=== PATIENT | male | born 1965 | race Caucasian/White ===

== ENCOUNTER 2020-11-03 04:50 | Day surgery (SDC) | payer BC, SELFPAY ==
[2020-10-26 13:42] VITALS: BMI 33.5
--- NOTE | 2020-11-02 20:20 | PM.HPGS ---
History of Present Illness History of Present Illness Consent: Risks, benefits, and alternatives have been discussed and questions answered. Patient agrees to proceed with procedure. Chief complaint: hx of colon polyps Narrative: Smith Leonardo is a 55 year old male here today for screening colonooscopy. I removed a polyp 4+ years ago Review of Systems Review of Systems: All systems reviewed & are unremarkable except as noted in HPI and below PMFSH Past Medical History Medical History Achilles tendon contracture, left Arthritis Bursitis of shoulder, left Callus of foot Effusion, left knee Fibromyalgia GERD with apnea Hearing loss Lateral epicondylitis Left elbow pain Left foot pain Metatarsalgia of left foot Peripheral neuropathy Plantar fasciitis Plantar fasciitis Vision abnormalities Surgical History Surgical History History of arthroscopy of knee History of carpal tunnel release History of repair of left rotator cuff Status post left foot surgery Family History Family History Other Cerebrovascular accident Diabetes mellitus Family history of alcoholism Hypertension Social History Social History Smoking packs per day: 0.5 Smoking cigarettes per day: 10.0 Years smoked: 40 Smoking pack-years: 20.00 Smoking status: Current every day smoker Alcohol intake: current Drinks per week: 6 Alcohol use details: Occasional Substance use: unknown Living arrangements: with family Spiritual care concerns: No Meds Home Medications and Allergies Home Medications Medication Instructions Recorded Confirmed Type omeprazole 40 mg-sodium 1 cap PO DAILY 01/19/19 10/27/20 History bicarbonate 1.1 gram capsule ibuprofen 800 mg tablet 800 mg PO Q12H #30 tablet 07/27/19 10/27/20 Rx gabapentin 600 mg tablet 600 mg PO BID 09/26/20 10/27/20 History sodium,potassium,mag sulfates See Rx Instructions .ROUTE 10/05/20 10/27/20 Rx [Suprep Bowel Prep Kit] .COMPLEX #1 ml sildenafil 25 mg PO DAILY PRN 10/26/20 11/03/20 History Allergies Allergy/AdvReac Type Severity Reaction Status Date / Time bupropion Allergy Severe HIVES Verified 11/03/20 07:45 varenicline Allergy Unknown Unknown Verified 11/03/20 07:45 Exam Resp: Auscultation: clear to auscultation bilaterally Cardio: Rate: regular rate Rhythm: regular rhythm GI: GI Palp: Yes Soft to palpation and No Tenderness to palpation present (GI) Assessment and Plan Assessment and plan (1) Colon cancer screening: Code(s): Z12.11 - Encounter for screening for malignant neoplasm of colon Status: Acute Assessment and Plan: Colonoscopy with possible biopsy or polypectomy or cautery or injection of substances.
--- NOTE | 2020-11-03 07:33 | WPDANESEPPF ---
Anes - Initial Pre Proc Eval Procedure: Operation Date: 11/03/20 08:30 Proposed Procedures p Screening Colonoscopy - Amauri Del Valle MD Date/Time: 11/03/20 07:33 Surgeon: Amauri Del Valle MD Pre Op Diagnosis: hx of colon polyps Patient Data Age: 55 Gender: M Height: 1.8 m Weight: 109 kg Allergies Allergy/AdvReac Type Severity Reaction Status Date / Time bupropion Allergy Severe HIVES Verified 11/03/20 07:45 varenicline Allergy Unknown Unknown Verified 11/03/20 07:45 Home Medications Medication Instructions Recorded Confirmed Type omeprazole 40 mg-sodium 1 cap PO DAILY 01/19/19 10/27/20 History bicarbonate 1.1 gram capsule ibuprofen 800 mg tablet 800 mg PO Q12H #30 tablet 07/27/19 10/27/20 Rx gabapentin 600 mg tablet 600 mg PO BID 09/26/20 10/27/20 History sodium,potassium,mag sulfates See Rx Instructions .ROUTE 10/05/20 10/27/20 Rx [Suprep Bowel Prep Kit] .COMPLEX #1 ml sildenafil 25 mg PO DAILY PRN 10/26/20 11/03/20 History Patient hx anesthesia problems: none Family hx anesthesia problems: none PMFSH Past Medical History Medical History (Updated 11/02/20 @ 20:22 by Amauri Del Valle MD) Achilles tendon contracture, left Arthritis Bursitis of shoulder, left Callus of foot Effusion, left knee Fibromyalgia GERD with apnea Hearing loss Lateral epicondylitis Left elbow pain Left foot pain Metatarsalgia of left foot Peripheral neuropathy Plantar fasciitis Plantar fasciitis Vision abnormalities Surgical History Surgical History (Updated 10/31/20 @ 09:03 by Nabila Wu, RT(R)) History of arthroscopy of knee History of carpal tunnel release History of repair of left rotator cuff Status post left foot surgery Family History Family History Other Cerebrovascular accident Diabetes mellitus Family history of alcoholism Hypertension Social History Social History Smoking packs per day: 0.5 Smoking cigarettes per day: 10.0 Years smoked: 40 Smoking pack-years: 20.00 Smoking status: Current every day smoker Alcohol intake: current Drinks per week: 6 Alcohol use details: Occasional Substance use: unknown Living arrangements: with family Spiritual care concerns: No Anes - Eval Final PreProcedure Day of Procedure 11/03/20 07:33 Patient weight: obese Heart: regular rate and rhythm Lungs: clear to auscultation and normal air movement Airway: Mallampati scale class II Neurological: alert and oriented Last oral intake: >/= 8 hours ASA classification: III Emergent: no Anesthetic plan: proceed Anesthesia type and monitoring: general GIVS Informed Consent: The patient's anesthetic plan and its attendant risks and benefits were discussed with the patient/family/POA. Questions were solicited and answers provided to the satisfaction of the patient/family/POA.
[2020-11-03 07:47] VITALS: BP 135/84; PULSE 82; RESP 16; TEMP 36.1; O2SAT 82; BMI 33.0
[2020-11-03] MEDS: LACTATED RINGERS 1,000 ML 150 ML IV CONT (07:59)
[2020-11-03 08:51] VITALS: BP 129/76; PULSE 83; RESP 17; O2SAT 100
[2020-11-03 09:01] VITALS: BP 136/92; PULSE 77; RESP 28; O2SAT 99
[2020-11-03 09:11] VITALS: BP 132/84; PULSE 68; RESP 19; O2SAT 99
== END 2020-11-03 09:23 | disposition home or self-care (01) ==
PROVIDERS: PCP Family Medicine; Visit Provider Internal Medicine Gastroenterology
PROC: 0DJD8ZZ Inspection of Lower Intestinal Tract, Via Natural or Artificial Opening Endoscopic (ICD-10-PCS; CPT 45378; principal; 2020-11-03 08:30)
DX: Z12.11 Encounter for screening for malignant neoplasm of colon (principal); K57.30 Diverticulosis of large intestine without perforation or abscess without bleeding; Z86.010 Personal history of colon polyps; K21.9 Gastro-esophageal reflux disease without esophagitis; M79.7 Fibromyalgia; G62.9 Polyneuropathy, unspecified; F17.210 Nicotine dependence, cigarettes, uncomplicated; E66.9 Obesity, unspecified; Z68.33 Body mass index [BMI] 33.0-33.9, adult
CPT/HCPCS: 45378; J2704; J7120

== ENCOUNTER 2021-06-07 07:38 | Outpatient (CLI) | payer BC, SELFPAY ==
--- NOTE | ~2021-06-07 | CT_ITS ---
EXAMINATION: CT abdomen pelvis wo/w con DATE: 06/07/2021 08:14 INDICATION: Microscopic hematuria TECHNIQUE: Computed tomography (CT) of the abdomen and pelvis was performed without intravenous contr ast. CT of the abdomen and pelvis was then performed with a total of 130 mL Omnipaque 350 intravenous contrast using a double-bolus technique for simultaneous opacification of the renal parenchyma and r enal collecting system. The dose-length product (DLP) was 2475.15 mGy-cm. Automated exposure control and iterative reconstruction technique were employed. COMPARISON: None FINDINGS: Minimal dependent atelectasis is present in the lung bases. The heart size is normal. The l iver, spleen, pancreas, gallbladder, and adrenal glands are normal. There is a 2.3 cm cyst of the rig ht kidney. No suspicious renal or urothelial lesion is identified. No stones are identified in the ki dneys, ureters, or bladder. There is no hydronephrosis or hydroureter. No pathologically enlarged abd ominal or pelvic lymph nodes are identified. Colonic diverticulosis is present without evidence of di verticulitis. The appendix is normal. There is a 10 mm cystic area posteriorly in the prostate or wanda inal vesicles. There is mild lumbar spondylosis. There is no free intraperitoneal gas or evidence of bowel obstruction. IMPRESSION: 1. No CT correlate for the patient's symptoms. Reviewed, dictated and finalized at location B.
== END 2021-06-07 07:39 | disposition home or self-care (01) ==
LOC: ANHIMG 07:41
PROVIDERS: PCP Family Medicine; Visit Provider Urology
DX: R31.29 Other microscopic hematuria (principal)
CPT/HCPCS: 74178; Q9967

== ENCOUNTER 2021-09-27 01:32 | Day surgery (SDC) | payer BC, SELFPAY ==
--- NOTE | 2021-08-30 16:12 | PM.IMHP ---
H&P: HPI History of Present Illness Date/Time: 08/30/21 16:12 Chief Complaint: Urinary frequency/urgency, nocturia and difficulty emptying Narrative: 56-year-old male with a several year history of progressive irritable and obstructive voiding symptoms. He reports both urinary frequency/ urgency with nocturia of 2 times per night in addition to a sense of hesitancy and incomplete emptying. Recent cystoscopy shows trilobar hyperplasia with a moderate-sized median all. There was no other identifiable lower urinary tract pathology on cystoscopy. He has had minimal response to a trial of tamsulosin can not tolerate finasteride because of side effects. After discussing therapeutic options including minimally invasive procedures for BPH such as UroLift and Rezum, he has elected for a TURP. He is aware the risk of this including, but not limited to, adverse cardiopulmonary events, postoperative hematuria, persistent irritable and/or obstructive voiding symptoms Review of Systems Cardiovascular: Cardiovascular: Denies chest pain, Denies lightheadedness, Denies palpitations and Denies dyspnea Respiratory: Respiratory: Denies dyspnea Gastrointestinal: Gastrointestinal: Denies diarrhea, Denies nausea and Denies vomiting Genitourinary: Genitourinary: Denies hematuria and Denies dysuria Endocrine: Endocrine: Denies palpitations PMFSH Past Medical History Medical History Achilles tendon contracture, left Arthritis Bursitis of shoulder, left Callus of foot Effusion, left knee Fibromyalgia GERD with apnea Hearing loss Lateral epicondylitis Left elbow pain Left foot pain Metatarsalgia of left foot Peripheral neuropathy Plantar fasciitis Plantar fasciitis Vision abnormalities Surgical History Surgical History History of arthroscopy of knee History of carpal tunnel release History of repair of left rotator cuff Status post left foot surgery Family History Family History Other Cerebrovascular accident Diabetes mellitus Family history of alcoholism Hypertension Social History Social History Smoking packs per day: 0.5 Smoking cigarettes per day: 10.0 Years smoked: 40 Smoking pack-years: 20.00 Smoking status: Current every day smoker Alcohol intake: current Drinks per week: 6 Alcohol use details: Occasional Substance use: unknown Spiritual care concerns: No Meds Home Medications and Allergies Home Medications Medication Instructions Recorded Confirmed Type omeprazole 40 mg-sodium 1 cap PO DAILY 01/19/19 10/27/20 History bicarbonate 1.1 gram capsule (Zegerid) ibuprofen 800 mg tablet 800 mg PO Q12H #30 tabs 07/27/19 10/27/20 Rx gabapentin 600 mg tablet 600 mg PO BID 09/26/20 10/27/20 History sildenafil 25 mg tablet 25 mg PO DAILY PRN Sexual Activity 10/26/20 11/03/20 History Allergies Allergy/AdvReac Type Severity Reaction Status Date / Time bupropion Allergy Severe HIVES Verified 11/03/20 07:45 varenicline Allergy Unknown Unknown Verified 11/03/20 07:45 Assessment and Plan Assessment and plan (1) BPH loc w urin obs/LUTS: Code(s): N40.1 - Benign prostatic hyperplasia with lower urinary tract symptoms Status: Acute Assessment and Plan: TURP
[2021-09-21 11:40] VITALS: BMI 33.5
--- NOTE | 2021-09-21 11:48 | PC.NURSE ---
Report to the Outpatient Waiting Room, entrance under the green pavilion located off [facility], at time 1000 on date 09/27/21. OR Time: 1200. - You and your visitor will be asked a series of questions to screen for COVID 19 for your protection. - Only one visitor is allowed at this time. - The patient visitor is requested to leave or wait in car when not with patient. - A mask is required within the hospital. Patients may have clear liquids (water, carbonated beverages, clear teas, apple juice) until 3 hours prior to surgery with a maximum of 20 ounces. - No food from midnight until time of surgery Take the following medications with a SIP of water the morning of surgery: GABAPENTIN Medications to discontinue per physician: IBUPROFEN Date to take last dose: PER DR. VACA Please no make-up, nail thai, hairspray, perfume, deodorant, or body powder the day of surgery. No jewelry (including any body piercings) or valuables the day of surgery, leave them at home. Please take a shower or bath the night before, or the morning of, surgery with an antibacterial soap. Wear comfortable, loose fitting clothing. - Jewelry must be removed prior to entering the operating room. Rings and piercings that are not removed may be cut off. - The hospital will not accept responsibility for valuables. - Please leave all valuables, including medications, at home the day of surgery. If you are going home after surgery, a licensed drivers license examiner must drive you home. - NO public transportation without another adult. - We recommend that an adult stay with you for 24 hours following discharge. - We also recommend that you do not drive, make important decision, drink alcoholic beverages, or take any drugs that were not prescribed by your health care provider for at least 24 hours after your discharge time. Follow any additional instructions given to you from your surgeon. If you or anyone in your household have experienced Covid symptoms in the past week, please notify your surgeon or the nurse liaison at the phone number below for possible testing. Telephone instructions given to PT - FIFI KEY and asked if any additional questions and then verbalized understanding. Patient advised to call surgeon office or pre surgery nurse liaison [phone] if any additional questions.
[2021-09-27] VITALS (14 sets, daily range): BP systolic 100–157; BP diastolic 52–92; PULSE 58–88; RESP 14–18; TEMP 35.7–37; O2SAT 94–100
--- NOTE | 2021-09-27 06:54 | WPDHPUPDATE1 ---
History and Physical Update Update Date/Time: 09/27/21 06:54 History and Physical has been reviewed, including an updated exam of the patient. There are NO changes in the patient's condition. Risks, benefits, and alternatives have been discussed and questions answered. Patient agrees to proceed with procedure.
--- NOTE | 2021-09-27 09:43 | P.PNAN_ITS ---
Anes - Initial Pre Proc Eval Procedure: Operation Date: 09/27/21 12:00 Proposed Procedures p Trans Urethral Resection Prostate - Emery Mcdonnell MD Date/Time: 09/27/21 09:43 Surgeon: Emery Mcdonnell MD Pre Op Diagnosis: BPH Patient Data Age: 56 Gender: M Height: 1.8 m Weight: 108.86 kg Allergies Allergy/AdvReac Type Severity Reaction Status Date / Time bupropion Allergy Severe HIVES Verified 09/27/21 09:43 varenicline Allergy Intermediate Hallucinati Verified 09/27/21 09:43 ng Home Medications Medication Instructions Recorded Confirmed Type omeprazole 40 mg-sodium 1 cap PO DAILY 01/19/19 09/21/21 History bicarbonate 1.1 gram capsule (Zegerid) ibuprofen 800 mg tablet 800 mg PO Q12H #30 tabs 07/27/19 09/21/21 Rx gabapentin 600 mg tablet 600 mg PO BID 09/26/20 09/21/21 History tadalafil 5 mg tablet 5 mg PO DAILY 09/21/21 09/21/21 History Patient hx anesthesia problems: post op nausea/vomiting Family hx anesthesia problems: none Results Review: All pre-operative results and documents have been reviewed as part of the pre- operative evaluation. [facility] Past Medical History Medical History Achilles tendon contracture, left Arthritis Bursitis of shoulder, left Callus of foot Effusion, left knee Fibromyalgia GERD with apnea Hearing loss Lateral epicondylitis Left elbow pain Left foot pain Metatarsalgia of left foot Peripheral neuropathy Plantar fasciitis Plantar fasciitis Vision abnormalities Surgical History Surgical History History of arthroscopy of knee History of carpal tunnel release History of repair of left rotator cuff Status post left foot surgery Family History Family History Other Cerebrovascular accident Diabetes mellitus Family history of alcoholism Hypertension Social History Social History Smoking packs per day: 0.5 Smoking cigarettes per day: 10.0 Years smoked: 40 Smoking pack-years: 20.00 Smoking status: Current some day smoker Tobacco type: cigarettes Alcohol intake: current Drinks per week: 6 Alcohol use details: Occasional Substance use: never Substance use type: does not use Living arrangements: with family Spiritual care concerns: No Anes - Eval Final PreProcedure Day of Procedure 09/27/21 09:43 Patient weight: obese Heart: regular rate and rhythm Lungs: clear to auscultation Airway: Mallampati scale class III Neurological: alert and oriented Last oral intake: >/= 8 hours ASA classification: III Emergent: no Anesthetic plan: proceed Anesthesia type and monitoring: general LMA and standard monitoring Results Review: All pre-operative results and documents have been reviewed as part of the pre- operative evaluation. Informed Consent: The patient's anesthetic plan and its attendant risks and benefits were discussed with the patient/family/POA. Questions were solicited and answers pro vided to the satisfaction of the patient/family/POA.
[2021-09-27] MEDS: LACTATED RINGERS 1,000 ML 30 ML IV CONT (09:53)
--- NOTE | 2021-09-27 11:09 | W.PM.PROC2 ---
Procedure Note - Detailed Date of Procedure 09/27/21 Pre-op Diagnosis BPH Post-op Diagnosis Same Procedure Performed TURP Surgeon Emery Mcdonnell MD Description of Procedure The patient was brought to the operative suite where he is prepped and draped in routine sterile fashion while in the dorsal lithotomy position after the uneventful induction of a general LMA anesthetic. A 27 [place] resectoscope sheath was placed into his bladder. He had no urethral strictures. The patient had trilobar hyperplasia with a moderate median lobe. The bladder itself was endoscopically normal, showing no mucosal hyperemia, intravesical neoplasm or foreign bodies. There was a single, orthotopic ureteral orifice bilaterally. These orifices were identified and preserved throughout the remainder of the procedure. Attention was first turned to resection of the median lobe. This resection was undertaken from the bladder neck to the verumontanum and carried out until the transverse fibers of the bladder neck were identified. The left lateral lobe was then resected starting at the 6 o'clock position, working counter clockwise to the 12 o'clock position. Again, resection was carried out from the bladder neck to the verumontanum until the capsular fibers of the prostate were identified. The right lateral lobe was resected in a similar fashion starting at the 6 o'clock position working clockwise to the 12 o'clock position and carried out until the capsular fibers of the prostate were identified. Apical tissue was then circumferentially resected. All chips were evacuated from the bladder using an [employer] evacuator. Hemostasis was obtained with electric cautery. The ureteral orifices were again inspected and found to be without injury. Estimated blood loss throughout this procedure was 50cc. The patient was taken to recovery room having tolerated this well. Estimated Blood Loss 50 Drains Yes Packing No Pathology None sent Complications No immediate complications Condition Stable Disposition PACU
--- NOTE | 2021-09-27 12:37 | PC.NURSE ---
This patient, Smith Leonardo, was admitted to 2 Medical Room 251-01. Patient/family oriented to hospital policies and general routines including ID bracelet, bed and alarms, visiting hours, pain management, procedures, bathroom and other care routines, personal items, smoking policy, room service/diet, and visiting hours. Information on how to activate the Rapid Response Team has been discussed. Patient/Family are encouraged to report perceived risks to care and to ask questions if they do not understand what they are told or what they should do.
[2021-09-27] MEDS: ONDANSETRON INJ 4 MG/2 ML VIAL IV PUSH (13:07)
[2021-09-27] MEDS: DEXTROSE 5%/LACTATED RINGERS 1,000 ML 125 ML IV CONT (13:09)
[2021-09-27] MEDS: PANTOPRAZOLE 40 MG TABLET PO (17:48)
[2021-09-27] MEDS: WATER FOR IRRIGATION, STERILE 1,000 ML BOTTLE 1000 ML (20:50)
[2021-09-28 01:18] VITALS: PULSE 83; O2SAT 95
[2021-09-28 01:51] VITALS: BP 145/84; PULSE 85; RESP 16; TEMP 36.3; O2SAT 100
[2021-09-28 04:51] VITALS: BP 145/83; PULSE 79; RESP 16; TEMP 36.4; O2SAT 99
[2021-09-28 05:37] LABS: Hemoglobin 14.9 g/dL (14.0-18.0)
[2021-09-28 06:20] LABS: Anion Gap 5 mmol/L (8-16); Blood Urea Nitrogen 17 mg/dL (9-20); Calcium 8.7 mg/dL (8.4-10.2); Carbon Dioxide 28 mmol/L (22-30); Chloride 106 mmol/L (98-107); Estimated CRCL calculation 103 ml/min; Estimated Glomerular Filt Rate > 60; Glucose 104 mg/dL (65-110); Potassium 4.2 mmol/L (3.4-5.0); Sodium 139 mmol/L (137-145)
--- NOTE | 2021-09-28 07:14 | WPDUROPN2 ---
Progress Note: A&P Assessment and Plan (1) BPH loc w urin obs/LUTS: Code(s): N40.1 - Benign prostatic hyperplasia with lower urinary tract symptoms Status: Acute Assessment and Plan: Doing well POD #1 TURP. Stop CBI now / voiding trial later this morning if urine remains clear off CBI. Subjective Subjective Date/Time Seen: 09/28/21 07:14 Comfortable, no complaints Review of Systems Cardiovascular: Cardiovascular: Denies chest pain, Denies lightheadedness, Denies palpitations and Denies dyspnea Respiratory: Respiratory: Denies dyspnea Gastrointestinal: Gastrointestinal: Denies diarrhea, Denies nausea and Denies vomiting Genitourinary: Genitourinary: Denies hematuria and Denies dysuria Endocrine: Endocrine: Denies palpitations Exam Const: General: no acute distress Resp: Effort & Inspection: normal respiratory effort GI: Inspection: non-distended GI Palp: No abdominal tenderness and No Guarding due to palpation present (GI) Auscultation: normal bowel sounds Objective Data Vital Signs Vital Signs: Vital Signs - 24 hr 09/27/21 09:37 09/27/21 11:10 09/27/21 11:25 Temperature 97.1 F L 97.3 F L Pulse Rate 70 74 86 Respiratory Rate 16 14 16 Blood Pressure 136/70 123/76 152/91 H Pulse Oximetry 98 94 100 Oxygen Delivery Room Air Simple Face Mask Simple Face Mask Oxygen Flow Rate 10 10 09/27/21 11:36 09/27/21 11:40 09/27/21 11:55 Temperature Pulse Rate 75 70 Respiratory Rate 16 16 Blood Pressure 157/92 H 154/84 H Pulse Oximetry 97 95 95 Oxygen Delivery Room Air Room Air Room Air Oxygen Flow Rate 09/27/21 12:10 09/27/21 13:20 09/27/21 13:35 Temperature 96.3 F L 97.3 F L Pulse Rate 71 58 L 60 Respiratory Rate 18 16 16 Blood Pressure 147/85 H 100/52 L 120/72 Pulse Oximetry 96 94 99 Oxygen Delivery Room Air Oxygen Flow Rate 09/27/21 14:05 09/27/21 14:00 09/27/21 18:00 Temperature 97.3 F L 97.6 F 98.6 F Pulse Rate 65 70 82 Respiratory Rate 16 16 18 Blood Pressure 124/65 145/79 H 136/84 Pulse Oximetry 99 99 96 Oxygen Delivery Oxygen Flow Rate 09/27/21 20:16 09/27/21 20:00 09/27/21 22:46 Temperature 97.5 F L Pulse Rate 88 88 Respiratory Rate 16 Blood Pressure 139/78 Pulse Oximetry 98 98 Oxygen Delivery Room Air CPAP Oxygen Flow Rate 09/28/21 01:51 09/28/21 01:18 09/28/21 04:51 Temperature 97.4 F L 97.5 F L Pulse Rate 85 83 793 H Respiratory Rate 16 16 Blood Pressure 145/84 H 145/83 H Pulse Oximetry 100 95 99 Oxygen Delivery CPAP Oxygen Flow Rate Intake/Output Intake/Output: Intake & Output 09/25/21 09/26/21 09/27/21 09/28/21 23:59 23:59 23:59 23:59 Intake Total 1200 50 Output Total 3275 5286 Balance -4459 -7116 Meds/Results Medications: Active Medications Generic Name Dose Route Start Last Admin Trade Name Freq PRN Reason Stop Dose Admin Hydrocodone Bitart/Acetaminophen 1 tab 09/27/21 12:15 Hydrocodone/Acetaminophen (*Crx) 5-325 Mg Tablet PO Q4H PRN Pain Rated 1-6 Cephalexin HCl 500 mg 09/28/21 09:00 Cephalexin 500 Mg Capsule PO QID ALBERTO Docusate Sodium 100 mg 09/27/21 17:00 09/27/21 17:49 Docusate Sodium 100 Mg Capsule PO Not Given BID ALBERTO Gabapentin 600 mg 09/27/21 21:00 09/27/21 20:23 Gabapentin 300 Mg Capsule PO Not Given Q12HR ALBERTO Hyoscyamine 0.125 mg 09/27/21 12:15 Hyoscyamine Sulfate 0.125 Mg Tablet SUBLINGUAL Q6H PRN Bladder Spasm Ibuprofen 800 mg 09/27/21 21:00 09/27/21 20:23 Ibuprofen 400 Mg Tablet PO Not Given Q12HR ALBERTO Morphine Sulfate 2 mg 09/27/21 12:15 Morphine Sulfate (*Crx) 2 Mg/Ml Inj IV PUSH Q2H PRN Pain Rated 7-10 Naloxone HCl 0.1 mg 09/27/21 12:15 Naloxone Hcl 0.4 Mg/Ml Vial IV PUSH Q2M PRN Opiate Reversal Ondansetron HCl 4 mg 09/27/21 12:15 09/27/21 13:07 Ondansetron Inj 4 Mg/2 Ml Vial IV PUSH 4 mg Q12H PRN Administration N
[2021-09-28] MEDS: CEPHALEXIN 500 MG CAPSULE PO ×2 (08:03→12:26)
[2021-09-28] MEDS: DOCUSATE SODIUM 100 MG CAPSULE PO (08:04)
[2021-09-28 10:00] VITALS: BP 145/79; PULSE 76; RESP 18; TEMP 36.4; O2SAT 99
--- NOTE | 2021-09-28 14:34 | P.DS_ITS ---
DS: Admitting Diagnosis Discharge Date 09/28/2021 Admitting Diagnosis BPH DS: Summary Hospital Course Hospital Course: This patient with longstanding prostatism refractory for medical management was admitted on the morning of his planned TURP. The procedure was undertaken on that same day in an uneventful fashion. His post-operative course was, likewise, uneventful. On the evening of the procedure he was tolerating a diet. On POD#1 his urine was clear on CBI. The urine remained clear and, therefore, the catheter was removed late morning. The patient was observed for several alex rs, until he demonstrated he could void effectively without significant hematuria. He was discharged with careful instruction on limiting physical activity x2 weeks and plans to f/ in 2-3 weeks. At discharge he was comfortable and tolerating a diet. Time Spent with Patient Time attestation: Total time spent providing and/or coordinating discharge services: DS: Data Data Completed and Pending Completed studies during hospitalization: Pending at discharge 09/27/21 10:39 Surgical [PTH] Routine Labs on day of discharge: Labs from last 24 hours 09/28/21 09/28/21 05:48 05:23 Hgb 14.9 Hct 43.0 Sodium 139 Potassium 4.2 Chloride 106 Carbon Dioxide 28 Anion Gap 5 L BUN 17 Creatinine 0.90 Estim Creat Clear Calc 103 Estimated GFR > 60 Glucose 104 Calcium 8.7 Discharge Plan Discharge Patient Disposition: Home, Self-Care Discharge Instructions: 1) Activity: No lifting/straining >15lbs. x2 weeks. 2) Diet: Resume normal pre-admission diet. 3) Follow-up: 2-3 weeks / call office for appointment ([phone]). Stand Alone Forms: General Discharge Instructions Discharge Medications: New hydrocodone-acetaminophen 5-325 mg tablet 1 - 2 tablet PO Q6H PRN (Reason: pain) Qty: 20 0RF sulfamethoxazole-trimethoprim 800-160 mg tablet 1 tablet PO Q12H Qty: 6 0RF Continued gabapentin 600 mg tablet 600 mg PO BID omeprazole-sodium bicarbonate [Zegerid] 40-1.1 mg-gram capsule 1 cap PO DAILY ibuprofen 800 mg tablet 800 mg PO Q12H Qty: 30 1RF tadalafil 5 mg Tablet 5 mg PO DAILY
== END 2021-09-28 15:01 | disposition home or self-care (01) ==
LOC: ANHSURGERY 09:17 → ANH2MED 12:17
PROVIDERS: PCP Family Medicine; Visit Provider Urology
PROC: 0VT08ZZ Resection of Prostate, Via Natural or Artificial Opening Endoscopic (ICD-10-PCS; CPT 52601; principal; 2021-09-27 12:00)
DX: N40.1 Benign prostatic hyperplasia with lower urinary tract symptoms (principal); R35.0 Frequency of micturition; R39.15 Urgency of urination; R35.1 Nocturia; K21.9 Gastro-esophageal reflux disease without esophagitis; M79.7 Fibromyalgia; F17.210 Nicotine dependence, cigarettes, uncomplicated; E66.9 Obesity, unspecified; Z68.33 Body mass index [BMI] 33.0-33.9, adult
CPT/HCPCS: 52601; 36415; 80048; 85014; 85018; 88305; A9270; J0690; J1100; J2250; J2405; J2704; J3010; J7120; J7121

== ENCOUNTER 2024-11-25 00:42 | Day surgery (SDC) | payer BC, SELFPAY ==
--- OUTSIDE RECORDS SUMMARY | 1999-11-05 19:00 | XMS_ITS | Continuity of Care Document ---
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 [address] [facility], [address], [place], [place], [id number] , [place]. tel:[phone] Referring Provider: Branden [address], [place], [address]. tel:[phone] Family History Family Member Type Diagnosis Age At Onset No Information Payers Payer name Insurance type Covered constitution party ID Authoriza tion(s) No Information Social History Type Description Quantity Date Captured Comments Sex Male Smoking Status No Information Chief Complaint And Reason For Visit No Information Reason For Referral Reason For Referral No Information History Of Present Illness Encounter Date Complaint History Of Prese nt Illness No Information Functional Status Date Functional Assessmen t No Information Instructions Date Instruction Additional Infor mation No Information Assessments Type Assessment Date No Information Patient Care Teams Name Effective Dates (start - stop) Status Members No Information
[2024-11-18 13:46] VITALS: BMI 32.8
--- NOTE | 2024-11-18 13:55 | PC.NURSE ---
Report to the Outpatient Waiting Room, entrance under the green pavilion located off [facility], at time _1045_ on date _[id number]_. Planned Procedure Time: _1245_.? Time changes happen often and if your time is changed the preop area will call you the afternoon before. - You and your visitor will be asked to self-screen and do not enter if you have any COVID symptoms. Please call surgeon if you need to reschedule. - A mask is optional within the hospital at this time. Patients may have clear liquids (water, carbonated beverages, clear teas, apple juice) until 3 hours prior to surgery with a maximum of 20 ounces. - No food from midnight until time of surgery and no smoking, or chewing tobacco (or any form of nicotine). No chewing gum, candy or mints. Take only the following medications with a SIP of water on the morning of surgery: __Gabapentin____ DO NOT STOP ANY OF YOUR OTHER PRESCRIPTION MEDICATIONS PRIOR TO SURGERY EXCEPT THE FOLLOWING Hold all vitamins and supplements for 3 days per anesthesiologist. Medications to discontinue per physician ___Ibuprofen____ Date to take last ymse__[phone]____ Please no make-up, nail greek, hairspray, perfume, deodorant, or body powder the day of surgery.? No jewelry (including any body piercings) or valuables the day of surgery, leave them at home.? Please take a shower or bath the night before, or the morning of, surgery with an antibacterial soap.? Wear comfortable, loose fitting clothing.? - Jewelry must be removed prior to entering the operating room.? Rings and piercings that are not removed may be cut off. - The hospital will not accept responsibility for valuables.? - Please leave all valuables, including medications, at home the day of surgery. If you are going home after surgery, a licensed train driver must drive you home.? - NO public transportation without another adult if you receive anesthesia. - We recommend that an adult stay with you for 24 hours following discharge. - We also recommend that you do not drive, make important decision, drink alcoholic beverages, or take any drugs that were not prescribed by your health care provider for at least 24 hours after your discharge time. Follow any additional instructions given to you from your surgeon. Telephone instructions given to __Brett___and asked if any additional questions and then verbalized understanding. Patient advised to call surgeon office or pre surgery nurse liaison [phone] if any additional questions.
[2024-11-25] VITALS (7 sets, daily range): BP systolic 145–156; BP diastolic 73–81; PULSE 70–86; RESP 15–18; TEMP 36.5–36.6; O2SAT 97–100
--- OUTSIDE RECORDS SUMMARY | 2024-11-25 00:44 | XMS_ITS | Encounter Summary ---
Author Organization [facility] Facility Care Team Providers Care Leather Cleaner Name Role Phone Feng Alford MD Primary Care Provider [phone]- [phone] Rios Graham MD Unavailable Rios Graham MD Unavailable Emery Mcdonnell MD Unavailable [phone] Shirley Kay Unavailable [phone] Encounter Details Date Type Department Care Team (Latest Contact Info) Description 12/18/2016 Orders Only [facility] CLINCONV Provider, MD Charlene [address] [place] [address] Social History Tobacco Use Types Packs/Day Years Used Date Smoking Tobacco: Never Assessed Sex and Gender Information Value Date Recorded Sex Assigned at Not on file Legal Sex Male 7:55 PM [employer] Gender Identity Not on file Sexual Orientation Not on file documented as of this encounter Plan of Treatment Not on file documented as of this encounter Procedures Procedure Name Priority Date/Time Associated Diagnosis Comments PROCEDURE - RESULT 12/26/2016 12 :00 AM CDT PROCEDURE - RESULT 12/19/2016 12 :00 AM CDT documented in this encounter Results * PROCEDURE - RESULT (12/26/2016 12:00 AM CDT) Narrative 12/26/2016 12:00 AM CDT Ordered by an unspecified provider. Historical Provider Final Res ult * PROCEDURE - RESULT (12/19/2016 12:00 AM CDT) Narrative 12/19/2016 12:00 AM CDT Ordered by an unspecified provider. Historical Provider Final Res ult documented in this encounter Visit Diagnoses Not on filedocumented in this encounter Care Teams Leather Cleaner Relationship Specialty [place] [address] [address] [address] PCP - General 10/14/18 Rios Graham MD [facility] [address] Consulting Physician Pain Management 05/31/21 07/02/22 Rios Graham MD [facility], [address] [address] Consulting Physician Pain Management 07/18/22 Emery Mcdonnell MD [address] [facility] [address] [address] Consulting Physician Urology 09/16/23 Shirley Kay PA [address] [place] [address] [address] Physician Senior Manufacturing Engineer Orthopedic Surgery 10/01/23 documented as of this encounter
--- OUTSIDE RECORDS SUMMARY | 2024-11-25 00:44 | XMS_ITS | Clinical Summary ---
Author Organization [facility] Address [address] [place] [address] Care Team Providers Care Detective Automobile Section Name Role Phone Feng Alford MD Primary Care Provider [phone] Allergies Active Allergy Reactions Criticality Noted Date Comments Bupropion Hives High 07/29/2014 Varenicline Other (see comment) High 07/29/2014 Terrible mood swings Medications Tadalafil (CIALIS) 2.5 MG TabIndications:B enign prostatic hyperplasia without lower urinary tract symptoms Take 1 tablet by mouth nightly. 90 tablet 1 04/04/2021 Active Cholecalciferol (D2000 ULTRA STRENGTH) 50 MCG (2000 UT) Cap Take 2,000 Units by mouth daily. Active Ascorbic Acid 1000 MG Tab Take 1,000 mg by mouth daily. Active Multiple Vitamin (MULTI-VITAMIN) tablet Take 1 tablet by mouth daily. Active [place]-3 Fatty Acids (KP FISH OIL) 1200 MG Cap Take 1,200 mg by mouth daily. Active ibuprofen (MOTRIN) 800 MG tabletIndication s:Neuropathy,Lef t foot pain Take 1 tablet (800 mg total) by mouth every 8 (eight) hours as needed for Pain. 90 tablet 1 07/26/2024 Active tiZANidine (ZANAFLEX) 4 MG tabletIndication s:Left foot pain,Medication management Take 1 tablet (4 mg total) by mouth nightly at bedtime. 90 tablet 1 07/26/2024 Active omeprazole (PRILOSEC) 40 MG capsuleIndicatio ns:Gastroesophag eal reflux disease, unspecified whether esophagitis present Take 1 capsule (40 mg total) by mouth daily. 90 capsule 1 07/26/2024 Active gabapentin (NEURONTIN) 600 MG tabletIndication s:Chronic right-sided low back pain with right-sided sciatica Take 1 tablet (600 mg total) by mouth 2 (two) times daily. 180 tablet 09/27/2024 03/26/19 26 Active Active Problems Problem Noted Date Diagnosed Date GERMANIA (obstructive sleep apnea) 03/06/2021 Overview (11/01/2021): Last Assessment & Plan: The patient continues to benefit from CPAP at 7 cm water pressure. He is using a ResMed CPAP unit. His DME supplier is now the [place]. He will follow up here in 1 year. Primary osteoarthritis of both knees 01/31/2021 Acute medial meniscus tear of left knee 08/25/19 Overview (09/05/2020): Added automatically from request for surgery [id number] Pancytopenia 09/23/2017 Fatigue 09/18/2017 Benign prostate hyperplasia 06/06/2015 Chronic GERD 07/29/2014 Resolved Problems Problem Noted Date Diagnosed Date Resolved Date Wears glasses 09/18/2017 11/26/2019 Encounters Date Type Department Care Team Description 11/10/2024 Scan [facility] HEALTH INFO SRVCS Scanned, Doc [facility] Image (SCAN) 10/04/2024 12:42 PM CDT - 10/04/2024 11:59 PM CDT Hospital Encounter [facility] Mammography [address] [place] [address] Homero Love MD Discharge Disposition: Home or Self Care (Routine Discharge) 10/04/2024 Travel from Last 3 Months Immunizations Immunization Administration Dates Next Due COVID-19 Vaccine (Generic) 03/14/2020 Influenza (Generic) 12/15/2022, 2,12/15/2020,2019,12/15/2017,12/15/2016 Influenza Adult (Generic) 01/05/2020 PFIZER COVID-19 (CHILD 5-11) , MRNA ADAM-SUCROSE, 10 MCG/0.2ML DOSE 06/25/2021 PFIZER COVID-19 (ORIGINAL FORMULATION, PURPLE CAP) mRNA, LNP-S, PF, 30 MCG/0.3 ML DOSE 01/30/2021,04/04/2020,03/14/2020 PFIZER COVID-19 BIVALENT (12 +) mRNA, LNP-S, PF, 30 MCG/0.3 ML DOSE 06/25/2021 Pneumococcal (Pneumovax 23) 08/20/2017 Td (Generic) 03/17/2015 Tdap (Generic) 10/30/2021 Family History Medical History Relation Comments Diabetes Father Hypertension Father Dementia Mother Breast Cancer Neg Hx Relation Status Comments Father Mother Social History Tobacco Use Types Packs/Day Years Used Date Smoking Tobacco: Every Day Cigarettes Last attempted to quit: 08/06/2018 Smokeless Tobacco: Never Tobacco Cessation:Ready to Q uit: Not Asked; Counseling Given: Yes Alcohol Use Standard Drinks/Week Comments Yes 0 (1 standard drink = 0.6 oz pur e alcohol) socially PHQ-2 Answer Date Recorded Patient Health Questionnaire-2 Score 0 04/04/2023 Sex and Gender Information Value Date Recorded Sex Assigned at Not on file Legal Sex Male 9:33 PM CDT Gender Identity Not on file Sexual Orientation Not on file Last Filed Vital Signs Vital Sign Reading Time Taken Comments Blood Pressure 139/82 07/26/2024 10:55 AM CDT Pulse 78 07/26/2024 10:47 AM CDT Temperature 36.7 C (98 F) 07/26/2024 10:47 AM CDT Respiratory Rate 16 07/26/2024 10:47 AM CDT Oxygen Saturation 97% 07/26/2024 10:47 AM CDT Inhaled Oxygen Concentration - - Weight 106.6 kg (235 lb) 07/26/2024 10:47 AM CDT Height 180.3 cm (5' 11) 07/26/2024 10:47 AM CDT Body Mass Index 32.78 07/26/2024 10:47 AM CDT Plan of Treatment Health Maintenance Due Date Last Done Comments Hepatitis B Vaccines (1 of 3 - 19+ 3-dose series) 1986 Zoster Vaccines (1 of 2) 2017 Pneumococcal Vaccine: 50+ Years (2 of 2 - PCV) 08/20/2018 08/20/2017 Annual Physical 12/08/2019 12/07/2018 PHQ-2 (Physician [place]) 03/17/2024 04/04/2023 Colorectal Cancer Screening Colonoscopy (10 Years) 03/19/2026 03/19/2016 DTaP, Tdap and Td Vaccines (2 - Td or Tdap) 10/31/2031 10/30/2021, 03/17/2015 Hepatitis C Completed 10/02/2017 COVID-19 Vaccine Completed 12/04/2023, 01/2022, 06/25/2021, Additional history exists Meningococcal B Vaccine Aged Out No l onger eligible based on patient's age to complete this topic Meningococcal Vaccine Aged Out No alphonse art eligible based on patient's age to complete this topic RSV Immunizations Under 20 Months Aged Out No longer eligible based on patient's age to complete this topic Procedures Procedure Name Priority Date/Time Associated Diagnosis Comments IMAGE GENERIC 11/10/2024 US BREAST LT [employer] Routine 10/04/2024 2:44 PM CDT Hypertrophy of breast MG DIAG W NEREIDA BILAT DIGI Routine 10/04/2024 2:00 PM CDT Hypertrophy of breast HEPATITIS C ANTIBODY Routine 10/02/2017 12:15 PM CDT COLONOSCOPY Routine 03/19/2016 12:00 AM INTERCEPTOR OPERATOR from Last 3 Months or Most Recently Relevant to Health Maintenance Results * IMAGE GENERIC (11/10/2024) Anatomical Region Laterality Modality Other 11/10/2024 us Doc [facility] Group Scanned SCANNING Final Resu lt * US BREAST LT [employer] [employer] (10/04/2024 2:44 PM CDT) Anatomical Region Laterality Modality Breast Left Ultrasound 10/04/2024 2:52 PM CDT Impressions 10/04/2024 2:55 PM CDT ===== IMPRESSION: ===== 1. The asymmetry in the left breast corresponds to gynecomastia. No suspicious changes in the right or left breast. Assessment: ACR BI-RADS 2 - BENIGN FINDING(S) Recommendation: 1:As discussed in reportBilateral Comments: Follow-up as indicated clinically. Ordered By: HOMERO LOVE Interpreted By: Amauri Wu MD, 10/04/2024 2:52 PM Narrative 10/04/2024 2:55 PM CDT [facility] [address] [place] [address] Examination: Digital bilateral diagnostic mammogram with 3-D tomography and left breast ultrasound [id number] Exam Date/Time: 10/04/2024 12:52 PM Reason For Exam: HYPERTROPHY OF BREAST Comparison: None Technique: Digital diagnostic mammography of both breasts was performed in addition to 3-D Tomosynthesis technique. This study was read with the assistance of a computer-aided detection system. Tissue density: There are scattered areas of fibroglandular density. Findings: Within the subareolar left breast there is an area of asymmetry that is present. This has the mammographic appearance of gynecomastia. Subsequent targeted ultrasound is performed. In the retroareolar left breast there is sonographic changes that are present consistent with changes of gynecomastia. No suspicious changes are present. No shadowing masses are present. Patient has no symptomatology in the retroareolar left breast. Findings were reviewed and discussed with the patient in the presence of the irrigation service technician, CARMENCITA. It was further discussed with the patient if there are subsequent changes to the retroareolar left breast, the patient is recommended to have follow-up imaging. Patient states understanding. On the right there is no focal asymmetry, dominant mass lesion, area of skin thickening, or cluster of suspicious appearing calcifications to suggest malignancy. us Homero Love MD ULTRASOUND Final Result * MG DIAG W NEREIDA BILCOLLEEN DIGI (10/04/2024 2:00 PM CDT) Anatomical Region Laterality Modality Breast Bilateral Mammography, Rad iographic Imaging 10/04/2024 2:52 PM CDT Impressions 10/04/2024 2:55 PM CDT ===== IMPRESSION: ===== 1. The asymmetry in the left breast corresponds to gynecomastia. No suspicious changes in the right or left breast. Assessment: ACR BI-RADS 2 - BENIGN FINDING(S) Recommendation: 1:As discussed in reportBilateral Comments: Follow-up as indicated clinically. Ordered By: HOMERO LOVE Interpreted By: Amauri Wu MD, 10/04/2024 2:52 PM Narrative 10/04/2024 2:55 PM CDT [facility] [address] [place] [address] Examination: Digital bilateral diagnostic mammogram with 3-D tomography and left breast ultrasound [id number] Exam Date/Time: 10/04/2024 12:52 PM Reason For Exam: HYPERTROPHY OF BREAST Comparison: None Technique: Digital diagnostic mammography of both breasts was performed in addition to 3-D Tomosynthesis technique. This study was read with the assistance of a computer-aided detection system. Tissue density: There are scattered areas of fibroglandular density. Findings: Within the subareolar left breast there is an area of asymmetry that is present. This has the mammographic appearance of gynecomastia. Subsequent targeted ultrasound is performed. In the retroareolar left breast there is sonographic changes that are present consistent with changes of gynecomastia. No suspicious changes are present. No shadowing masses are present. Patient has no symptomatology in the retroareolar left breast. Findings were reviewed and discussed with the patient in the presence of the irrigation service technician, CARMENCITA. It was further discussed with the patient if there are subsequent changes to the retroareolar left breast, the patient is recommended to have follow-up imaging. Patient states understanding. On the right there is no focal asymmetry, dominant mass lesion, area of skin thickening, or cluster of suspicious appearing calcifications to suggest malignancy. us Homero Love MD MAMMO Final Result * HEPATITIS C ANTIBODY (10/02/2017 12:15 PM CDT) HEPATITIS C AB NON-REACTI VE NON-REACTI VE 10/02/2017 10:57 PM CDT [facility] SERUM OR PLASMA SPECIMEN / Unknown 10/02/2017 12:15 PM CDT 10/02/2017 1:12 PM CDT us Generic Conversion Md [facility] Final R esult [facility] [address] [place] [address], * Colonoscopy (03/19/2016 12:00 AM INTERCEPTOR OPERATOR) 03/19/2016 03/19/2016 Narrative [facility] TO EPIC CONVERSION - 03/19/2016 12:00 AM INTERCEPTOR OPERATOR Documented hx of procedure Procedure Note Nicky Richmond MD - 01/18/2018 Documented hx of procedure us Generic Conversion Md [facility] PROCEDURE ORDERABLES Final Result Performing Organization Address City/[facility]/ZIP Co de Phone Number [facility] TO EPIC CONVERSION from Last 3 Months or Most Recently Relevant to Health Maintenance Insurance [facility] Care Teams Detective Automobile Section Relationship Specialty [place] [address] [place] [address] PCP - General FAMILY PRACTICE 11/17/18
--- OUTSIDE RECORDS SUMMARY | 2024-11-25 00:44 | XMS_ITS | Encounter Summary ---
Author Organization [facility] Care Team Providers Care Women'S Lacrosse Coach Name Role Phone Feng Alford MD Primary Care Provider [phone]- [phone] Rios Graham MD Unavailable Rios Graham MD Unavailable Emery Mcdonnell MD Unavailable [phone] Shirley Kay Unavailable [phone] Encounter Details Date Type Department Care Team (Latest Contact Info) Description 11/11/2016 Orders Only [facility] CLINCONV Provider, MD Charlene [address] [place] [address] Social History Tobacco Use Types Packs/Day Years Used Date Smoking Tobacco: Never Assessed Sex and Gender Information Value Date Recorded Sex Assigned at Not on file Legal Sex Male 7:55 PM AIR INTELLIGENCE SPECIALIST Gender Identity Not on file Sexual Orientation Not on file documented as of this encounter Plan of Treatment Not on file documented as of this encounter Procedures Procedure Name Priority Date/Time Associated Diagnosis Comments PROCEDURE - RESULT 11/11/2016 12 :00 AM CDT documented in this encounter Results * PROCEDURE - RESULT (11/11/2016 12:00 AM CDT) Narrative 11/11/2016 12:00 AM CDT Ordered by an unspecified provider. us Historical Provider Final Res ult documented in this encounter Visit Diagnoses Not on filedocumented in this encounter Care Teams Women'S Lacrosse Coach Relationship Specialty [place] [address] [address] [facility] [address] [place] [address] PCP - General 10/14/18 Rios Graham MD [address] [facility], [address] [address] Consulting Physician Pain Management 05/31/21 07/02/22 Rios Graham MD [facility], [address] [address] Consulting Physician Pain Management 07/18/22 Emery Mcdonnell MD [address] [facility] [address] [place] [address] Consulting Physician Urology 09/16/23 Shirley Kay PA [facility] [address] [address] Physician Budget Report Clerk Orthopedic Surgery 10/01/23 documented as of this encounter
--- OUTSIDE RECORDS SUMMARY | 2024-11-25 00:44 | XMS_ITS | Clinical Summary ---
Author Organization [facility] Address [address], [facility] [place] [address] Phone Care Team Providers Care Forestry Tree Pruner Name Role Phone Feng Alford MD Primary Care Provider [phone] Allergies Active Allergy Reactions Criticality Noted Date Comments Varenicline Unknown 10/02/2017 Bupropion Hives 10/02/2017 Medications omeprazole (PRILOSEC) 40 MG CAPSULE DELAYED RELEASE 08/25/2017 Active gabapentin (NEURONTIN) 600 MG Tablet 08/25/2017 Active tamsulosin (FLOMAX) 0.4 MG Capsule 07/09/2017 Active [place]-3 Fatty Acids (FISH OIL PO) Take by mouth. Active Multiple Vitamins-Mineral s (CENTRUM SILVER PO) Take by mouth. Active Cholecalciferol (VITAMIN D3) 1000 UNIT Tablet Take by mouth. Active Active Problems Problem Noted Date Diagnosed Date Pancytopenia 10/02/2017 Family History Medical History Relation Name Comments Diabetes Father Heart Disease Father Stroke Father Depression Mother Depression Sister Relation Name Status Comments Father Mother Sister Alive Social History Tobacco Use Types Packs/Day Years Used Date Smoking Tobacco: Every Day Cigarettes Smokeless Tobacco: Never Alcohol Use Standard Drinks/Week Comments Yes 0 (1 standard drink = 0.6 oz pur e alcohol) occ drink Sex and Gender Information Value Date Recorded Sex Assigned at Not on file Legal Sex Male 10:21 PM CDT Gender Identity Not on file Sexual Orientation Not on file Last Filed Vital Signs Vital Sign Reading Time Taken Comments Blood Pressure 126/74 10/09/2017 1:51 PM CDT Pulse 88 10/09/2017 1:51 PM CDT Temperature 36.4 C (97.5 F) 10/09/2017 1:51 PM CDT Respiratory Rate - - Oxygen Saturation 97% 10/09/2017 1:51 PM CDT Inhaled Oxygen Concentration - - Weight 103 kg (227 lb) 10/09/2017 1:51 PM CDT Height 180.3 cm (5' 11) 10/09/2017 1:51 PM CDT Body Mass Index 31.66 10/09/2017 1:51 PM CDT Plan of Treatment Health Maintenance Due Date Last Done Comments Hepatitis C Virus (HCV) Screening 1965 TdaP Immunization 1967 Hepatitis B Immunization (1 of 3 - 19+ 3-dose series) 1986 Cologuard 2012 Colonoscopy 2012 Colorectal Cancer Screening 2012 Immunochemical Fecal Occult Blood 2012 Pneumococcal Immunization (5 0+ years) (1 of 1 - PCV) 2017 Zoster Immunization (1 of 2) 2017 Influenza Immunization (#1) 2024 SARS-COV-2 Immunization (3 - season) 2024 04/04/2020, 03/14/2020 Respiratory Syncytial Virus (RSV) Immunization (Adult) (1 - 1-dose 75+ series) 2042 Human Papillomavirus (HPV) Immunization Aged Out No longer eligible b ased on patient's age to complete this topic Meningococcal Immunization (ACWY) Aged Out No longer eligible b ased on patient's age to complete this topic Rotavirus Immunization Aged Out No lo nger eligible based on patient's age to complete this topic Insurance [facility] Care Teams Forestry Tree Pruner Relationship Specialty [place] [address] [place] [address] PCP - General Family Medicine 09/24/17
--- OUTSIDE RECORDS SUMMARY | 2024-11-25 00:44 | XMS_ITS | Encounter Summary ---
Author Organization [facility] Care Team Providers Care Saxophone Player Name Role Phone Feng Alford MD Primary Care Provider [phone] Rios Graham MD Unavailable Rios Graham MD Unavailable Emery Mcdonnell MD Unavailable [phone] Shirley Kay Unavailable [phone] Encounter Details Date Type Department Care Team (Latest Contact Info) Description 11/08/2016 Orders Only [facility] CLINCONV Provider, MD Charlene [address] [place] [id number] Social History Tobacco Use Types Packs/Day Years Used Date Smoking Tobacco: Never Assessed Sex and Gender Information Value Date Recorded Sex Assigned at Not on file Legal Sex Male 7:55 PM RADIO PERSONALITY Gender Identity Not on file Sexual Orientation [...] on filedocumented in this encounter Care Teams Saxophone Player Relationship Specialty [place] [address] [address] [facility] [address] [place] [address] PCP - General 10/14/18 Rios Graham MD [address] [facility], [address] [address] Consulting Physician Pain Management 05/31/21 07/02/22 Rios Graham MD [facility], [address] [address] Consulting Physician Pain Management 07/18/22 Emery Mcdonnell MD [address] [facility] [address] [place] [address] Consulting Physician Urology 09/16/23 Shirley Kay PA [facility] [address] [address] Physician Whipped Topping Mixer Orthopedic Surgery 10/01/23 documented as of this encounter
--- OUTSIDE RECORDS SUMMARY | 2024-11-25 00:44 | XMS_ITS | Clinical Summary ---
Author Organization [address] Address [address] [address] Care Team Providers Care Dryerman/Woman Name Role Phone Feng Alford MD Primary Care Provider [phone] Rios Graham MD Unavailable Emery Mcdonnell MD Unavailable [phone] Shirley Kay Unavailable [phone] Allergies Active Allergy Reactions Criticality Noted Date Comments Bupropion Hives Medium 07/29/2014 Varenicline Hives Medium 07/29/2014 Confusion Medications gabapentin (NEURONTIN) 600 mg tablet Take 1 tablet (600 mg total) by mouth 2 (two) times a day 0 Active omeprazole (PriLOSEC) 40 mg capsule Take 1 capsule (40 mg total) by mouth daily 0 Active tadalafiL (ADCIRCA) 2.5 mg tabletIndication s:benign prostatic hyperplasia with lower urinary tract sx Take 2 tablets (5 mg total) by mouth every other day 5 mg Active fish oil-dha-epa 1,200-144-216 mg capsule Take 1,200 mg by mouth daily Active cholecalciferol (VITAMIN D-3) 2000 unit capsule Take 1 capsule (2,000 Units total) by mouth daily with breakfast Active magnesium gluconate 200 mg tabletIndication s:hypomagnesemia Take 1.25 tablets (250 mg total) by mouth daily with breakfast Active multivitamin tabletIndication s:Vitamin Deficiency Prevention Take 1 tablet by mouth daily Active ascorbic acid (vitamin C) 1,000 mg tablet Take 1 tablet (1,000 mg total) by mouth daily Active tiZANidine (ZANAFLEX) 4 mg tablet Take 1 tablet (4 mg total) by mouth every 8 (eight) hours as needed for muscle spasms 270 tablet 4 Active Additional Information Patient not taking.Reported on 11/01/2024 ibuprofen 200 mg tab/cap Take 4 tablet/capsule (800 mg total) by mouth every 6 (six) hours as needed for pain Active ALPRAZolam (XANAX) 0.5 mg tablet Take 1 tablet (0.5 mg total) by mouth nightly as needed for anxiety 5 tablet 4 Active Additional Information Patient not taking.Reported on 11/01/2024 HYDROcodone-acet aminophen (NORCO) 5-325 mg per tabletIndication s:Pain Take 1-2 tablets by mouth every 4 (four) hours as needed for pain 40 tablet 4 Active naloxone (NARCAN) 4 mg/actuation spray,non-aeroso l Administer 1 spray into affected nostril(s) as needed for opioid reversal or respiratory depression Call 911. Administer a single spray in one nostril. Repeat every 3 minutes as needed if no or minimal response. 1 each 4 Active Active Problems Problem Noted Date Diagnosed Date Chronic pain of left knee 11/01/2024 It band syndrome, left 11/01/2024 S/P left knee arthroscopy 12/29/2023 Arthrofibrosis of knee joint, right 12/16/2023 Peripheral tear of medial meniscus of left knee 11/11/2023 S/P total knee arthroplasty, right 10/15/2023 Arthritis of right knee 09/30/2023 Primary osteoarthritis of right knee 04/23/2023 GERMANIA (obstructive sleep apnea) 03/06/2021 Assessment & Plan (05/27/2024 11:03 AM CDT): The patient continue to wear his CPAP in auto titrating range of 718 cm water pressure while sleeping. [facility] DME is [facility]. Assessment & Plan (05/22/2023 11:53 AM TELECOMMUNICATIONS OPERATOR): Due to continued symptoms, the patient will continue CPAP at 7-18 cm water pressure. Denied need for supplies. [facility] Assessment & Plan (03/04/2022 10:10 AM TELECOMMUNICATIONS OPERATOR): Patient will continue with CPAP therapy at 7 cm water pressure. Denied need for supplies. DME provider Plus Assessment & Plan (03/06/2021 9:34 AM TELECOMMUNICATIONS OPERATOR): The patient continues to benefit from CPAP at 7 cm water pressure. He is using a ResMed CPAP unit. His DME supplier is now the [place]. He will follow up here in 1 year. Primary osteoarthritis of both knees 01/31/2021 Acute medial meniscus tear of left knee 08/25/19 21 Overview (08/24/2020): Added automatically from request for surgery [id number] S/P left open rotator cuff repair 02/08/202009/2019 s/p left elbow lateral tendon release on 020 02/21/2020 s/p left open carpal tunnel release on 0 02/21/2020 Encounters Date Type Department Care Team Description 11/01/2024 9:45 AM CDT Office Visit [facility] Orthopedics and Sports Medicine [address] [place] [phone] Shirley Kay PA Chronic pain of left knee (Primary Dx); It band syndrome, left from Last 3 Months Immunizations Immunization Administration Dates Next Due Influenza, Unspecified 01/05/2020 Sars-CoV-2, Unspecified 03/14/2020 Surgical History Surgery Date Site/Laterality Comments FOOT NEUROMA SURGERY 03/17/1999 - 03/16/2000 Left FOOT SURGERY Left [facility] has had 7 foot surgeries total in the SHOULDER ARTHROSCOPY W/ ROTA TOR CUFF REPAIR 03/17/2019 - 03/16/2020 Left CARPAL TUNNEL RELEASE 03/17/2019 - 03/16/2020 Left ULNAR NERVE TRANSPOSITION 03/17/2019 - 03/16/2020 Left CARPAL TUNNEL RELEASE 03/17/2014 - 03/16/2015 Right ULNAR NERVE TRANSPOSITION 03/17/2014 - 03/16/2015 Right KNEE ARTHROSCOPY Right [facility] had X3 1999's TRANSURETHRAL RESECTION OF PROSTATE 2021 - 03/16/2022 all done laproscopic COLONOSCOPY 2020 ESOPHAGOGASTRODUODENOSCOPY VASECTOMY years ago TOTAL KNEE ARTHROPLASTY 09/30/2023 Medical History Medical History Date Comments Prostate disorder had cyst Pancytopenia HL (hearing loss) Sleep apnea 2006 cpap at night GERD (gastroesophageal reflux disease) Controlled with omeprazole BPH (benign prostatic hyperplasia) Wears glasses Wears hearing aid in both ears Lung nodule 08/07/2022 Neuropathy Osteoarthritis Obesity Medial meniscus tear left knee Family History Medical History Relation Name Comments Diabetes Father Hypertension Father Dementia Mother Relation Name Status Comments Father Mother Social History Tobacco Use Types Packs/Day Years Used Date Smoking Tobacco: Former Cigarettes 0.4 76 S tarted: 1979 Passive Smoke Exposure: Past Smokeless Tobacco: Never Comments:Stopped smoking 09/14 05/10 Alcohol Use Standard Drinks/Week Comments Yes 0 (1 standard drink = 0.6 oz pur e alcohol) [facility] Utilities Answer Date Recorded In the past 12 months has [employer], gas, oil, or water [employer] threatened to shut off services in your home? No 10/01/2023 Social Connection and Isolation Panel Answer Date Recorded In a typical week, how many times do you talk on the phone with family, friends, or neighbors? More than three times a week 10/01/2023 How often do you get togethe r with friends or relatives? Three times a week 10/01/2023 How often do you attend chur or baptist services? 1 to 4 times per year 10/01/2023 Do you belong to any clubs o r organizations such as jewish groups, unions, fraternal or athletic groups, or school groups? Yes 10/01/2023 How often do you attend meet ings of the clubs or organizations you belong to? 1 to 4 times per year 10/01/2023 Are you , , di vorced, , never , or living with a partner? 10/01/2023 AUDIT-C Answer Date Recorded Q1: How often do you have a drink containing alc ohol? 2-4 times a month 12/16/2023 Q2: How many drinks containi ng alcohol do you have on a typical day when you are drinking? 1 or 2 12/16/2023 Q3: How often do you have si x or more drinks on one occasion? Never 12/16/2023 Overall Financial Resource Strain (CARDIA) Answe r Date Recorded How hard is it for you to pa y for the very basics like food, housing, medical care, and heating? Not hard at all 10/01/2023 Hunger Vital Sign Answer Date Recorded Within the past 12 months, y ou worried that your food would run out before you got the money to buy more. Never true 10/01/19 24 Within the past 12 months, t he food you bought just didn't last and you didn't have money to get more. Never true 10/01/2023 PRAPARE - Transportation Answer Date Re corded In the past 12 months, has l ack of transportation kept you from medical appointments or from getting medications? No 09/14 In the past 12 months, has l ack of transportation kept you from meetings, work, or from getting things needed for daily living? No 10/01/2023 Housing Stability Vital Sign Answer Rob e Recorded In the last 12 months, was t here a time when you were not able to pay the mortgage or rent on time? No 10/01/2023 In the past 12 months, how m any times have you moved where you were living? 0 10/01/2023 At any time in the past 12 m [facility], were you homeless or living in a [place] facility (including now)? No 10/01/2023 Personal Safety Answer Date Recorded Have you ever been in or are you currently in a harmful physical or emotional relationship or is someone making you feel afraid or unsafe? Denies 12/16/2023 Sex and Gender Information Value Date Recorded Sex Assigned at Not on file Legal Sex Male 7:55 PM TELECOMMUNICATIONS OPERATOR Gender Identity Not on file Sexual Orientation Not on file Obstetrics History Last Filed Vital Signs Vital Sign Reading Time Taken Comments Blood Pressure 132/82 05/27/2024 9:11 AM CDT Pulse 75 05/27/2024 9:11 AM CDT Temperature 36.7 C (98.1 F) 05/27/2024 9:11 AM CDT Respiratory Rate 18 05/27/2024 9:11 AM CDT Oxygen Saturation 97% 05/27/2024 9:11 AM CDT Inhaled Oxygen Concentration - - Weight 104.3 kg (230 lb) 11/01/2024 9:58 AM CDT Height 180.3 cm (5' 11) 11/01/2024 9:58 AM CDT Body Mass Index 32.08 11/01/2024 9:58 AM CDT Plan of Treatment Health Maintenance Due Date Last Done Comments Colon Cancer Screening-Colonoscopy 1965 Depression Screening 1965 Hepatitis C Screening 1965 Prostate Cancer Screening-PSA 1965 Hepatitis B Screening 1985 Regular Well Visit/Exam 18-64 1985 Zoster Vaccine (1 of 2) 2017 Influenza Vaccine (#1) 2024 , 12/15/2022, 12/15/2021, Additional history exists DTaP/Tdap/Td Vaccine (2 - Td or Tdap) 10/31/2031 10/30/2021, 03/17/2015 Pneumococcal vaccine <65 Aged Out 08/20/2017 No longer eligible based on patient's age to complete this topic Medical Devices Implanted Type Area Roving Machine Operator Device Identifier Shelf Expiration Date Model / Serial / Lot Joint Replacement Left: Foot [employer] Simplex P Radiopaque Full Dose Cement Bone Sterile 6191-1-010 - [id number] Implanted:Qty: 1 on 09/30/2023 by Werner Small MD at [facility] Right: Knee [employer] 01/14/2026 6191-1-010 / / [id number] [employer]/Or tho Journey Ii 70.5x65.7mm Bicruciate Stabilize Knee Right 6 [id number] - [id number] Implanted:Qty: 1 on 09/30/2023 by Werner Small MD at [facility] Right: Knee [employer]o [id number] 06/13/2033 [id number] / / [id number] [employer] Journey Bicruciate Stabilize Knee Right 7 Baseplate Tibial [id number] - [id number] Implanted:Qty: 1 on 09/30/2023 by Werner Small MD at [facility] Right: Knee [employer] [id number] 05/13/2033 [id number] / / [id number] [employer]/Or tho Component Patellar Kn Resurfacing Domed 3 Peg Journey 29mm Poly [id number] - [id number] Implanted:Qty: 1 on 09/30/2023 by Werner Small MD at [facility] Right: Knee [employer] [id number] 07/22/2033 [id number] / / [id number] [employer] Ii 11mm Bicruciate Stabilized Right 7-8 Insert Articular [id number] - [id number] Implanted:Qty: 1 on 09/30/2023 by Werner Small MD at [facility] Right: Knee [employer] [id number] 09/01/2031 [id number] / / [id number] Insurance [facility] FEDERAL Advance Directives For more information, please contact: [phone] * Full Code (Latest Code Status on File) Date Activated Date Inactivated Comments 09/30/2023 1:25 PM 10/01/2023 8:57 PM Care Teams Dryerman/Woman Relationship Specialty [place] [address] [address] [facility] [address] [place] [address] PCP - General 10/14/18 [place] [address] [address] [facility] [address] [place] [address] Consulting Physician Pain Management 07/18/22 Emery Mcdonnell MD [address] [address] Consulting Physician Urology 09/16/23 Shirley Kay PA [address] [address] Physician Computer Engineering Technician Orthopedic Surgery 10/01/23
--- NOTE | 2024-11-25 08:11 | WPDHPUPDATE1 ---
History and Physical Update Update Date/Time: 11/25/24 08:11 History and Physical has been reviewed, including an updated exam of the patient. There are NO changes in the patient's condition. Risks, benefits, and alternatives have been discussed and questions answered. Patient agrees to proceed with procedure.
[2024-11-25] MEDS: ACETAMINOPHEN 500 MG TABLET 1000 MG PO (11:35)
[2024-11-25] MEDS: LACTATED RINGERS 1,000 ML 30 ML IV CONT (11:40)
[2024-11-25] MEDS: KETOROLAC 15 MG/ML VIAL (*BKC) IV PUSH (11:45)
--- NOTE | 2024-11-25 13:11 | WPDANESEPPF ---
Anes - Initial Pre Proc Eval Procedure: Operation Date: 11/25/24 12:45 Proposed Procedures p Left Foot Excision of Exostosis, Excision of Left Second Intermetatarsal Space Neuroma - Smith Marroquin MD Date/Time: 11/25/24 13:11 Surgeon: Smith Marroquin MD Pre Op Diagnosis: lft foot exostosis,second intermetatarsal space ne Patient Data Age: 59 Gender: M Height: 1.8 m Weight: 105.1 kg Last Vital Signs Temp 97.8 F 11/25/24 10:37 Pulse 78 11/25/24 10:37 Resp 18 11/25/24 10:37 BP 150/76 H 11/25/24 10:37 Pulse Ox 99 11/25/24 10:37 O2 Del Method Room Air 11/25/24 10:37 Allergies Allergy/AdvReac Type Severity Reaction Status Date / Time bupropion Allergy Severe HIVES Verified 11/25/24 12:00 varenicline Allergy Intermediate Hallucinati Verified 11/25/24 12:00 ng Home Medications ?Medication ?Instructions ?Recorded ?Confirmed ?Type omeprazole 40 mg-sodium 1 cap PO DAILY 01/19/19 11/18/24 History bicarbonate 1.1 gram capsule (Zegerid) ibuprofen 800 mg tablet 800 mg PO Q12H #30 tabs 07/27/19 11/18/24 Rx gabapentin 600 mg tablet 600 mg PO BID 09/26/20 11/25/24 History tadalafil 5 mg tablet 5 mg PO DAILY 09/21/21 11/18/24 History sulfamethoxazole 800 1 tablet PO Q12H #6 tabs 09/28/21 11/18/24 Rx mg-trimethoprim 160 mg tablet tizanidine 4 mg tablet 4 mg PO HS 11/18/24 11/18/24 History Patient hx anesthesia problems: post op nausea/vomiting Family hx anesthesia problems: none Results Review: All pre-operative results and documents have been reviewed as part of the pre-operative evaluation. [facility] Past Medical History Medical History Callus of foot Peripheral neuropathy Achilles tendon contracture, left Metatarsalgia of left foot Plantar fasciitis Effusion, left knee Lateral epicondylitis Left elbow pain Left foot pain Bursitis of shoulder, left Plantar fasciitis GERD with apnea Arthritis Vision abnormalities Hearing loss Fibromyalgia Surgical History Surgical History History of arthroscopy of knee History of carpal tunnel release History of repair of left rotator cuff Status post left foot surgery Family History Family History Other Cerebrovascular accident Diabetes mellitus Family history of alcoholism Hypertension Social History Social History Smoking packs per day: 0.5 Smoking cigarettes per day: 10.0 Years smoked: 40 Smoking pack-years: 20.00 Smoking status: Current some day smoker Tobacco type: cigarettes Alcohol intake: current Drinks per week: 6 Alcohol use details: beer Substance use: never Substance use type: does not use Living arrangements: with family Spiritual care concerns: No Anes - Eval Final PreProcedure Day of Procedure 11/25/24 13:11 Patient weight: obese Heart: regular rate and rhythm Lungs: clear to auscultation Airway: Mallampati scale class II Neurological: alert and oriented Last oral intake: >/= 8 hours ASA classification: III Emergent: no Anesthetic plan: proceed Anesthesia type and monitoring: general LMA and standard monitoring Results Review: All pre-operative results and documents have been reviewed as part of the pre-operative evaluation. Informed Consent: The patient's anesthetic plan and its attendant risks and benefits were discussed with the patient/family/POA. Questions were solicited and answers provided to the satisfaction of the patient/family/POA.
[2024-11-25] MEDS: ceFAZolin 2 GM in SODIUM CHLORIDE 0.9% IV 50 ML 100 ML IVPB (13:41)
--- NOTE | 2024-11-25 13:49 | S_PTH ---
PATIENT: Smith Leonardo LOC: [facility] U#:[id number] AGE/SX: 59/M ROOM: RE11/25/[address]: Smith Marroquin MD : 1965 BED: DIS: 11/25/2024 SPEC #: [id number] RECD: 11/26/24 07:32 STATUS: RUTH REQ #: [id number] CYNTHIA: 11/25/24 13:[address]: Smith Marroquin DEPT: [facility] Surgical RECD BY: Kelli Chahal ENTERED: 11/26/24 07:32 SP TYPE: Surgical OTHR DR: Feng AlfordMD Tissues: A - Mass Procedures: Hematoxylin and Eosin Stain Gross and Microscopic Level 3
--- NOTE | 2024-11-25 14:38 | P.OP_ITS ---
Procedure Note - Detailed Date of Procedure 11/25/24 Pre-op Diagnosis lft foot exostosis,second intermetatarsal space neuroma Post-op Diagnosis Same Procedure Performed Excision exostosis from the dorsum of the tarsal bones, excision of left 2nd intermetatarsal space neuroma Surgeon Smith Marroquin MD Manager Of Sales 1st payroll human resources assistant Anesthesia General Indications 59-year-old with left foot pain and deformity. MRI of the foot shows exostosis from the dorsum of the tarsal bones causing dorsal prominence pressure. 2nd intermetatarsal space neuroma with pain. Cortisone injections, shoe wear accommodations and therapy. Findings Intermetatarsal space neuroma. Large dorsal exostosis from the cuneiform. Description of Procedure After informed consent was given the operative extremity was marked in the preoperative holding area. Patient received intravenous antibiotics. She was brought to the operating room where she underwent a general anesthetic by the anesthesia team. Time-out performed confirming the patient, site of the surgery, operative plan. The left lower extremity was then prepped and draped in usual sterile surgical fashion using ChloraPrep skin solution. Foot and ankle exsanguinated and a calf tourniquet inflated to 250 mmHg. Dorsal approach utilized and longitudinal incision made with 15 blade knife centered over the 2nd intermetatarsal space. Hemostasis controlled with electrocautery. Extensor tendon retracted laterally. Fascia incised in line with the skin incision and the intermetatarsal ligament released. This allowed visualization of a large neuroma in the intermetatarsal space. This was freed up off of the phalanx medially and laterally and brought out of the wound proximally. Division was carried up to the musculature and the nerve was then sharply ligated. This was passed off as specimen. Wound bed was inspected and no other neural elements were identified. Wound irrigated and the fascia closed with 2-0 Vicryl interrupted suture. Subcutaneous tissue. 3-0 Monocryl interrupted suture and skin repaired with 4-0 nylon suture. Exostosis on the dorsum of the foot then addressed. Longitudinal incision made centered over the exostosis with a 15 blade knife. Hemostasis controlled electrocautery. Fascia incised in line with skin incision. Neural vascular elements were carefully retracted. Dorsal exostosis then circumferentially dis sected free of soft tissue. Osteotome then used to resect the exostosis and smoothed with a rongeur. Wound irrigated and the bone surface was covered with bone wax. Fascia repaired with 2-0 Vicryl interrupted suture. Subcutaneous tissue repaired with 3-0 Monocryl interrupted suture and skin repaired with 4-0 nylon running suture. Tourniquet released in good capillary refill noted in the toes. Sterile dressings applied. Patient awoke from anesthesia, extubated and taken to the recovery room in stable condition. All sponge, needle, instrument counts correct at the end of the case. Implants None Estimated Blood Loss 5 Tourniquet Time Total Tourniquet Time: 45 Drains No Packing No (Intermetatarsal space neuroma left foot 2nd) Pathology Yes (Left foot 2nd intermetatarsal space neuroma) Complications None Condition Stable Disposition PACU [facility] Billing Surgery - Charge Forward: Surgery Billing ([id number], [id number])
== END 2024-11-25 15:56 | disposition home or self-care (01) ==
PROVIDERS: PCP Family Medicine; Visit Provider Orthopaedic Surgery
PROC: (CPT 28122; principal; 2024-11-25 12:45)
DX: G57.62 Lesion of plantar nerve, left lower limb (principal); M67.02 Short Achilles tendon (acquired), left ankle; G62.89 Other specified polyneuropathies; K21.9 Gastro-esophageal reflux disease without esophagitis; G47.30 Sleep apnea, unspecified; M79.7 Fibromyalgia; F17.210 Nicotine dependence, cigarettes, uncomplicated; E66.9 Obesity, unspecified; Z68.32 Body mass index [BMI] 32.0-32.9, adult; Z79.1 Long term (current) use of non-steroidal anti-inflammatories (NSAID); Z79.891 Long term (current) use of opiate analgesic; Z98.890 Other specified postprocedural states
CPT/HCPCS: 28122; 28080; 88304; J0690; A9270; J1100; J1885; J2003; J2250; J2405; J2704; J3010; J7120